=== PATIENT | female | born 1995 | race Caucasian/White ===

== ENCOUNTER 2017-09-03 13:59 | Emergency (ER) | payer BC ==
[~2017-09-03] VITALS: Ht 170.2 cm; Wt 63.4 kg
[2017-09-03 14:01] VITALS: TEMP 36.8; Ht 170.2 cm; Wt 63.4 kg
--- NOTE | 2017-09-03 14:45 | DIAGNOSTIC IMAGING REPORT ---
R HAND MIN 3 VIEWS ROUTINE HISTORY: 22 years-old Female right hand injury acute right hand pain with swelling in the region of the second third digits COMPARISON: None available TECHNIQUE: 3 views of the right and FINDINGS: No acute fracture, dislocation or significant degenerative changes. There is mild dorsal hand soft tissue swelling without opaque foreign body. IMPRESSION: Mild dorsal hand soft tissue swelling without acute bony abnormality. The above report was generated using voice recognition software. It may contain grammatical, syntax or spelling errors. Electronically signed by: Osman Bagley M.D. 09/03/2017 2:43 PM Dictated Date/Time: 09/03/2017 2:42 PM
[2017-09-03] MEDS ORDERED: BCPILLS PO (14:52)
[2017-09-03] MEDS ORDERED: FERR1TAB23 PO (14:52)
[2017-09-03] MEDS ORDERED: MULT-513 PO (14:52)
--- NOTE | 2017-09-03 14:55 | EMERGENCY ROOM VISIT NOTE ---
ED Visit Note First contact with patient: 14:08 CHIEF COMPLAINT: Right Hand injury HISTORY OF PRESENT ILLNESS: This 22-year-old female presents the ER with chief complaint of right index finger injury extending into her hand. The patient states yesterday she was doing exercises and went to jump up onto a box and hit her right index finger on the radial aspect onto the box. She states there was some pain and swelling but she continued to exercise. She only iced it on one occasion. She margi taped it to the adjacent finger. She has not taken anything for pain since she cannot take NSAIDs since she is having surgery on . The patient is right-hand dominant. REVIEW OF SYSTEMS:6 system review was performed and was negative unless stated otherwise in history of present illness. PMH: The patient is healthy; there is no significant medical or surgical history. SOCIAL HISTORY: Patient is a [employer] student. The patient denies tobacco use but admits to occasional alcohol use. PHYSICAL EXAM: Vital Signs: Were reviewed Reviewed Nurse's notes. GEN.: 22-year -old female appears in no acute distress. MENTAL Status: Alert and oriented 3. RIGHT HAND: No gross bony deformity noted. The patient has swelling noted over the PIP joint of the first digit extending into the second MCP joint and metacarpal region. The patient has limited range of motion of the finger secondary to pain. EMERGENCY DEPARTMENT COURSE: The patient was evaluated. I do not offered the patient Tylenol but she refused. X-ray of the right hand was ordered and interpreted by the radiologist and myself. DIAGNOSTICS:R HAND MIN 3 VIEWS ROUTINE HISTORY: 22 years-old Female right hand injury acute right hand pain with swelling in the region of the second third digits COMPARISON: None available TECHNIQUE: 3 views of the right and FINDINGS: No acute fracture, dislocation or significant degenerative changes. There is mild dorsal hand soft tissue swelling without opaque foreign body. IMPRESSION: Mild dorsal hand soft tissue swelling without acute bony abnormality. The above report was generated using voice recognition software. It may contain grammatical, syntax or spelling errors. Electronically signed by: Osman Bagley M.D. 09/03/2017 2:43 PM The patient was informed of the findings. The patient was placed in a long metal finger splint and discharged home in stable condition. DIAGNOSIS: Right Hand/finger contusion DISCHARGE INSTRUCTIONS & TREATMENT: Tylenol as needed for pain. Keep finger in in splint except for bathing until pain is tolerable without it. Ice intermittently over the next 24 hours. Keep it elevated whenever possible. When the swelling goes down if you're still unable to extend the finger, recommend follow-up with orthopedics. Allergies Coded Allergies: Azithromycin (Verified Allergy, Severe, hives, 09/03/17) Sulfamethoxazole w/Trimethoprim (Verified Allergy, Severe, HIVES, 09/03/17 ) Vital Signs Date Time Temp Pulse Resp B/P (MAP) Pulse Ox O2 Delivery O2 Flow Rate FiO2 09/03/17 14:01 36.8 58 20 125/81 97 Room Air Departure Information Referrals No Doctor, Assigned (PCP) Patient Instructions [facility]
[2017-09-03 15:02] VITALS: BP 117/72; PULSE 72; O2SAT 99
== END 2017-09-03 15:10 | disposition home or self-care (01) ==
LOC: C.EDB 14:02 → C.EDD 15:10
DX: S60.221A Contusion of right hand, initial encounter (principal); S60.021A Contusion of right index finger without damage to nail, initial encounter; S60.031A Contusion of right middle finger without damage to nail, initial encounter; W22.8XXA Striking against or struck by other objects, initial encounter; Y92.9 Unspecified place or not applicable; Y93.B9 Activity, other involving muscle strengthening exercises